=== PATIENT | male | born 1985 | race African-American/Black ===

== ENCOUNTER 2017-04-02 22:23 | Emergency (ER) | payer SELFPAY ==
[~2017-04-02] VITALS: Ht 175.3 cm; Wt 85.0 kg
[~2017-04-02 22:23] MED LIST: GLUC1000 PO; GLUCTAB PO; IBUP600 PO
[2017-04-02 22:25] VITALS: BP 157/90; PULSE 91; RESP 16; TEMP 98.4; O2SAT 98
[2017-04-03] MEDS ORDERED: KETOROLAC TROMETHAMINE 30 MG/ML (IVP) VIAL IV PUSH ONE
[2017-04-03] MEDS ORDERED: SODIUM CHLORIDE 0.9% FLUSH 10 ML FLUSH IV FLUSH PRN
[2017-04-03] MEDS ORDERED: METOCLOPRAMIDE HCL 10 MG/2 ML VIAL IV PUSH ONE
--- NOTE | 2017-04-03 00:09 | PD ---
HPI Chief Complaint: Headache Time Seen by Provider: 23:54 Travel History International Travel<30 days: No Contact w/Intl Traveler<30days: No Traveled to known affect area: No History of Present Illness HPI 32-year-old male here for evaluation of headache. The patient reports that for the last week he has been having intermittent headaches that are mainly right retro-orbital, described as pressure. He tried taking ibuprofen a couple days ago for the symptoms with some relief in symptoms. He had the pain last evening , and his significant other tried to take him to the hospital, however the patient refused. The headache resolved only to return again today at around 3: 00 PM. He states that today his symptoms seem a little bit more severe than they have been over the last week. He denies vision changes. No fevers or chills. No nausea or vomiting. He is complaining of some photophobia particularly in the right eye. No paresthesias or motor deficits. PFSH Past Medical History Asthma: Yes Diabetes: Yes Patient Takes Glucophage: No Diminished Hearing: No Tetanus Vaccination: Unknown Influenza Vaccination: No Past Surgical History Other Surgery: Yes (LEFT 2ND DIGIT ) Social History Alcohol Use: No Tobacco Use: No Substance Use: No Allergies-Medications (Allergen,Severity, Reaction): Coded Allergies: penicillin G (Unverified Allergy, Intermediate, Anaphylaxis, 01/03/17) Reported Meds & Prescriptions Reported Meds & Active Scripts Active Motrin 600 Mg Tab (Ibuprofen) 600 Mg Tab 600 Mg PO Q6H PRN Glucophage 1000 mg (Metformin HCl) 1,000 Mg Tab 1,000 Mg PO BIDPC 30 Days Reported Metformin (Metformin HCl) 500 Mg Tab 1,000 Mg PO DAILY Review of Systems Except as stated in HPI: all other systems reviewed are Neg Physical Exam Narrative GENERAL: Well-developed, well-nourished, comfortable, no apparent distress. SKIN: Focused skin assessment warm/dry. No rash. HEAD: Atraumatic. Normocephalic. EYES: Pupils equal, round, 3 mm, reactive to light. EOMI. No proptosis. There is mild right scleral injection. No left scleral injection. Bilateral corneas are clear. No scleral icterus. ENT: Mucous membranes pink and moist. NECK: Trachea midline. No JVD. No nuchal rigidity. CARDIOVASCULAR: Regular rate and rhythm. RESPIRATORY: No accessory muscle use. Clear to auscultation. Breath sounds equal bilaterally. GASTROINTESTINAL: Abdomen soft, non-tender, nondistended. MUSCULOSKELETAL: No obvious deformities. No clubbing. No cyanosis. No edema. NEUROLOGICAL: Awake and alert. No obvious cranial nerve deficits. Motor grossly within normal limits. Normal speech. PSYCHIATRIC: Appropriate mood and affect; insight and judgment normal. Data Data Last Documented VS Vital Signs Date Time Temp Pulse Resp B/P (MAP) Pulse Ox O2 Delivery O2 Flow Rate FiO2 04/02/17 22:25 98.4 91 16 157/90 (112) 98 Room Air Orders Orders Complete Blood Count With Diff (04/02/17 23:59) Comprehensive Metabolic Panel (04/02/17 23:59) Prothrombin Time / Inr (Pt) (04/02/17 23:59) Act Partial Throm Time (Ptt) (04/02/17 23:59) Iv Access Insert/Monitor (04/02/17 23:59) Ecg Monitoring (04/02/17 23:59) Oximetry (04/02/17 23:59) Sodium Chloride 0.9% Flush (Ns Flush) (04/03/17 00:00) Ct Brain W/O Iv Contrast(Rout) (04/02/17 ) Sodium Chlor 0.9% 1000 Ml Inj (Ns 1000 M (04/03/17 00:00) Metoclopramide Inj (Reglan Inj) (04/03/17 00:00) Ketorolac Inj (Toradol Inj) (04/03/17 00:00) Sodium Chlor 0.9% 1000 Ml Inj (Ns 1000 M (04/03/17 01:30) Insulin Human Regular Inj (Novolin R Inj (04/03/17 01:30) Insulin Human Regular Inj (Novolin R Inj (04/03/17 01:30) Labs Laboratory Tests Test 04/02/17 00:37 White Blood Count 6.1 TH/MM3 Red Blood Count 5.19 MIL/MM3 Hemoglobin 15.0 GM/DL Hematocrit 43.8 % Mean Corpuscular Volume 84.5 FL Mean Corpuscular Hemoglobin 28.8 PG Mean Corpuscular Hemoglobin Concent 34.1 % Red Cell Distribution Width 13.9 % Platelet Count 221 TH/MM3 Mean Platelet Volume 8.9 FL Neutrophils (%) (Auto) 47.9 % Lymphocytes (%) (Auto) 38.3 % Monocytes (%) (Auto) 6.7 % Eosinophils (%) (Auto) 6.0 % Basophils (%) (Auto) 1.1 % Neutrophils # (Auto) 2.9 TH/MM3 Lymphocytes # (Auto) 2.3 TH/MM3 Monocytes # (Auto) 0.4 TH/MM3 Eosinophils # (Auto) 0.4 TH/MM3 Basophils # (Auto) 0.1 TH/MM3 CBC Comment DIFF FINAL Differential Comment Prothrombin Time 10.7 SEC Prothromb Time International Ratio 1.0 RATIO Activated Partial Thromboplast Time 26.9 SEC Blood Urea Nitrogen 14 MG/DL Creatinine 1.12 MG/DL Random Glucose 429 MG/DL Total Protein 7.3 GM/DL Albumin 3.4 GM/DL Calcium Level 8.7 MG/DL Alkaline Phosphatase 89 U/L Aspartate Amino Transf (AST/SGOT) 16 U/L Alanine Aminotransferase (ALT/SGPT) 23 U/L Total Bilirubin 0.2 MG/DL Sodium Level 138 MEQ/L Potassium Level 4.2 MEQ/L Chloride Level 102 MEQ/L Carbon Dioxide Level 29.2 MEQ/L Anion Gap 7 MEQ/L Estimat Glomerular Filtration Rate 93 ML/MIN [facility] Medical Decision Making Medical Screen Exam Complete: Yes Emergency Medical Condition: Yes Differential Diagnosis Tension headache, cluster headache, migraine headache, intracranial abnormality , SAH/meningitis/encephalitis less likely Narrative Course Initial vital signs show heart rate 91, blood pressure 157/90, pulse ox 98% on room air, oral temp of 98.4F. CBC: WBC 6.1, hemoglobin 15, hematocrit 43.8, platelets 221. CMP is remarkable for random glucose 429, otherwise unremarkable. Bicarbonate is 29.2. Patient has history of diabetes and is supposed to be on metformin 500 mg twice a day, however he has not been on this medication for the last couple of months because he has been unable to make an appointment with his primary care physician. He reports that he has a primary care physician appointment with Dr. Gregory in 2 days on Monday. Currently he is hyperglycemic, however is not in DKA. Patient was given a liter of normal saline, IV Toradol, and IV Reglan, and on reassessment he states his headache has improved to 4 out of 10. At approximately 1:00 AM at the end of my shift the patient was signed out to my PA Bao Santos to follow up with CT head. CT head is normal and the patient' s pain has improved, I believe he can be discharged home with further workup as an outpatient with his primary care physician as he has an appointment with him in 2 days. I do not believe that there is an infectious etiology for the patient's head pain. He is afebrile and there is no nuchal rigidity on exam. Diagnosis Primary Impression: Headache Qualified Codes: R51 - Headache Additional Impression: Hyperglycemia Referrals: Primary Care Physician 2 days Additional Instructions: Follow-up with your primary care physician on Monday as scheduled. Take metformin as prescribed. Return to the emergency department for worsening symptoms or any other concerns. Scripts Metformin (Metformin) 500 Mg Tab 500 MG PO BIDPC for Blood Sugar Management, #60 TAB 0 Refills Prov: Cole Rosas MD 04/03/17 Disposition: 01 DISCHARGE HOME Condition: Stable Cole Rosas MD Apr 03, 2017 00:09
[2017-04-03 00:47] LABS: AUTOMATED NEUTROPHIL # 2.9 TH/MM3 (1.8-7.7); BASOPHIL # 0.1 TH/MM3 (0-0.2); BASOPHIL % 1.1 % (0.0-2.0); EOSINOPHIL # 0.4 TH/MM3 (0-0.4); HEMATOCRIT 43.8 % (39.0-51.0); HEMO FLAGS DIFF FINAL; LYMPH % 38.3 % (9.0-44.0); LYMPHOCYTE # 2.3 TH/MM3 (1.0-4.8); MEAN CELL VOLUME 84.5 FL (80.0-100.0); MEAN CORPUSCULAR HEMOGLOBIN 28.8 PG (27.0-34.0); MEAN CORPUSCULAR HGB CONC 34.1 % (32.0-36.0); MONO % 6.7 % (0.0-8.0); NEUT % 47.9 % (16.0-70.0); PLATELET COUNT 221 TH/MM3 (150-450); RED BLOOD COUNT 5.19 MIL/MM3 (4.50-5.90); RED CELL DISTRIBUTION WIDTH 13.9 % (11.6-17.2); WHITE BLOOD COUNT 6.1 TH/MM3 (4.0-11.0)
[2017-04-03 00:58] LABS: APTT (PATIENT) 26.9 SEC (24.3-30.1); PROTHROMBIN TIME - PATIENT 10.7 SEC (9.8-11.6)
[2017-04-03 01:09] LABS: ALKALINE PHOSPHATASE 89 U/L (45-117); ALT (GPT) 23 U/L (12-78); ANION GAP 7 MEQ/L (5-15); AST (GOT) 16 U/L (15-37); BICARBONATE 29.2 MEQ/L (21.0-32.0); BLOOD UREA NITROGEN 14 MG/DL (7-18); CHLORIDE 102 MEQ/L (98-107); GLOMERULAR FILTRATION RATE 93 ML/MIN (>89); POTASSIUM 4.2 MEQ/L (3.5-5.1); SODIUM (NA) 138 MEQ/L (136-145); TOTAL BILIRUBIN ADULT 0.2 MG/DL (0.2-1.0)
[2017-04-03] MEDS ORDERED: INSULIN HUMAN REGULAR 1,000 UNITS/10 ML VIAL IV PUSH ONE ×2 (01:30)
[2017-04-03] MEDS ORDERED: SODIUM CHLOR 0.9% 1000 ML INJ 1,000 ML IV ONE ×2 (01:30)
[2017-04-03] MEDS ORDERED: METF500T PO (01:32)
--- NOTE | 2017-04-03 01:55 | RADRPT ---
EXAM DATE/TIME: 04/03/2017 01:41 [facility] COMPARISON: No previous studies available for comparison. INDICATIONS : Cephalgia x1 week. RADIATION DOSE: 56.35 CTDIvol (mGy) MEDICAL HISTORY : Diabetes mellitus type 2. Asthma. SURGICAL HISTORY : None. ENCOUNTER: Initial ACUITY: 1 week PAIN SCALE: 4/10 LOCATION: cranial TECHNIQUE: Multiple contiguous axial images were obtained of the head. Using automated exposure control and adj ustment of the mA and/or kV according to patient size, radiation dose was kept as low as reasonably a chievable to obtain optimal diagnostic quality images. DICOM format image data is available electro nically for review and comparison. FINDINGS: CEREBRUM: The ventricles are normal for age. No evidence of midline shift, mass lesion, hemorrhage or acute in farction. No extra-axial fluid collections are seen. POSTERIOR FOSSA: The cerebellum and brainstem are intact. The 4th ventricle is midline. The cerebellopontine angle i s unremarkable. EXTRACRANIAL: The visualized portion of the orbits is intact. SKULL: The calvaria is intact. No evidence of skull fracture. CONCLUSION: Normal examination. Jake Casarez MD on April 03, 2017 at 1:53 Board Certified Radiologist. This report was verified electronically.
--- NOTE | 2017-04-03 02:00 | PD ---
Physical Exam Narrative Patient was signed out to me by Dr. Rosas pending CT scan results. Please see his documentation for full H&P. Data Data Last Documented VS Vital Signs Date Time Temp Pulse Resp B/P (MAP) Pulse Ox O2 Delivery O2 Flow Rate FiO2 04/03/17 02:56 04/02/17 22:25 98.4 91 16 98 Room Air Orders Orders Complete Blood Count With Diff (04/02/17 23:59) Comprehensive Metabolic Panel (04/02/17 23:59) Prothrombin Time / Inr (Pt) (04/02/17 23:59) Act Partial Throm Time (Ptt) (04/02/17 23:59) Iv Access Insert/Monitor (04/02/17 23:59) Ecg Monitoring (04/02/17 23:59) Oximetry (04/02/17 23:59) Sodium Chloride 0.9% Flush (Ns Flush) (04/03/17 00:00) Ct Brain W/O Iv Contrast(Rout) (04/02/17 ) Sodium Chlor 0.9% 1000 Ml Inj (Ns 1000 M (04/03/17 00:00) Metoclopramide Inj (Reglan Inj) (04/03/17 00:00) Ketorolac Inj (Toradol Inj) (04/03/17 00:00) Sodium Chlor 0.9% 1000 Ml Inj (Ns 1000 M (04/03/17 01:30) Insulin Human Regular Inj (Novolin R Inj (04/03/17 01:30) Insulin Human Regular Inj (Novolin R Inj (04/03/17 01:30) Ed Discharge Order (04/03/17 02:01) Metformin (Glucophage) (04/03/17 03:00) Labs Laboratory Tests Test 04/02/17 00:37 White Blood Count 6.1 TH/MM3 Red Blood Count 5.19 MIL/MM3 Hemoglobin 15.0 GM/DL Hematocrit 43.8 % Mean Corpuscular Volume 84.5 FL Mean Corpuscular Hemoglobin 28.8 PG Mean Corpuscular Hemoglobin Concent 34.1 % Red Cell Distribution Width 13.9 % Platelet Count 221 TH/MM3 Mean Platelet Volume 8.9 FL Neutrophils (%) (Auto) 47.9 % Lymphocytes (%) (Auto) 38.3 % Monocytes (%) (Auto) 6.7 % Eosinophils (%) (Auto) 6.0 % Basophils (%) (Auto) 1.1 % Neutrophils # (Auto) 2.9 TH/MM3 Lymphocytes # (Auto) 2.3 TH/MM3 Monocytes # (Auto) 0.4 TH/MM3 Eosinophils # (Auto) 0.4 TH/MM3 Basophils # (Auto) 0.1 TH/MM3 CBC Comment DIFF FINAL Differential Comment Prothrombin Time 10.7 SEC Prothromb Time International Ratio 1.0 RATIO Activated Partial Thromboplast Time 26.9 SEC Blood Urea Nitrogen 14 MG/DL Creatinine 1.12 MG/DL Random Glucose 429 MG/DL Total Protein 7.3 GM/DL Albumin 3.4 GM/DL Calcium Level 8.7 MG/DL Alkaline Phosphatase 89 U/L Aspartate Amino Transf (AST/SGOT) 16 U/L Alanine Aminotransferase (ALT/SGPT) 23 U/L Total Bilirubin 0.2 MG/DL Sodium Level 138 MEQ/L Potassium Level 4.2 MEQ/L Chloride Level 102 MEQ/L Carbon Dioxide Level 29.2 MEQ/L Anion Gap 7 MEQ/L Estimat Glomerular Filtration Rate 93 ML/MIN MDM Supervised Visit with SOFI: No Interpretation(s) Last Impressions Head CT 04/02/17 0000 Signed Impressions: Service Date/Time: Monday, April 03, 2017 01:41 - CONCLUSION: Normal examination. Jake Casarez MD Narrative Course Patient in no obvious distress upon re-evaluation. All pertinent laboratory/ Radiology result(s) discussed with patient/family. Any questions/concerns in reference to patient diagnosis/condition discussed and clarified prior to patient's discharge. Reinforced sheer importance of close follow up with patient 's primary physician or primary care clinic. Instructed patient to return to ED immediately, if symptoms return/worsen. Patient showed understanding of above instructions. Further instructions and recommendations were detailed in discharge paperwork. Patient ambulated without difficulty out of ED at discharge. Diagnosis Primary Impression: Headache Qualified Codes: R51 - Headache Additional Impression: Hyperglycemia Referrals: Primary Care Physician 2 days Additional Instruction: Follow-up with your primary care physician on Monday as scheduled. Take metformin as prescribed. Return to the emergency department for worsening symptoms or any other concerns. Scripts Naproxen (Naprosyn) 500 Mg Tab 500 MG PO Q12HR Y for HEADACHE, #14 TAB 0 Refills Prov: Cole Rosas MD 04/03/17 Metformin (Metformin) 500 Mg Tab 500 MG PO BIDPC for Blood Sugar Management, #60 TAB 0 Refills Prov: Cole Rosas MD 04/03/17 Disposition: 01 DISCHARGE HOME Condition: Stable Mike Santos Apr 03, 2017 02:00
[2017-04-03] MEDS ORDERED: NAPR500 PO (02:01)
[2017-04-03] MEDS ORDERED: metFORMIN HCL 500 MG TAB PO ONE (03:00)
== END 2017-04-03 03:16 | disposition home or self-care (01) ==
LOC: NEPD 22:23
DX: R51 Headache (principal); E11.65 Type 2 diabetes mellitus with hyperglycemia; Z79.84 Long term (current) use of oral hypoglycemic drugs
CPT/HCPCS: 70450; 80053; 85025; 85610; 85730; 96361; 96374; 96375; 96376; 99285; J1815; J1885; J2765; J7030